=== PATIENT | male | born 1980 | race Caucasian/White ===

== ENCOUNTER 2019-10-03 21:35 | Emergency (ER) | payer MEDICAID, SELFPAY ==
[~2019-10-03] VITALS: Ht 177.8 cm; Wt 68.0 kg
[~2019-10-03 21:35] MED LIST: IBUP1POW8
[2019-10-03 22:29] VITALS: BP 111/71
== END 2019-10-04 02:42 | disposition home or self-care (01) ==
LOC: ER 21:36
DX: R50.9 Fever, unspecified (principal); F17.200 Nicotine dependence, unspecified, uncomplicated; Z20.828 Contact with and (suspected) exposure to other viral communicable diseases
CPT/HCPCS: 87070; 87804; 87880; 99283; U0003

== ENCOUNTER 2019-10-06 15:03 | Emergency (ER) | payer MEDICAID, OTHER, SELFPAY ==
[~2019-10-06] VITALS: Ht 177.8 cm; Wt 68.0 kg
[2019-10-06 15:30] VITALS: BP 132/77
[2019-10-06] MEDS ORDERED: cefTRIAXone SOD 1,000 MG VL IM ONE (16:15)
== END 2019-10-06 16:49 | disposition home or self-care (01) ==
LOC: ER 15:03
DX: J02.9 Acute pharyngitis, unspecified (principal); F17.210 Nicotine dependence, cigarettes, uncomplicated; Z88.1 Allergy status to other antibiotic agents
CPT/HCPCS: 96372; 99283; J0696

== ENCOUNTER 2023-03-18 22:47 | Emergency (ER) | payer SELFPAY ==
[~2023-03-18] VITALS: Ht 177.8 cm; Wt 72.7 kg
[~2023-03-18 22:47] MED LIST changes: +IBUP1POW13; -IBUP1POW8
[2023-03-18 23:01] VITALS: BP 108/75; RESP 15; O2SAT 98
[2023-03-18 23:17] LABS: Basophils # (auto) 0.1 10 ^3/uL (0-0.2); Basophils % (auto) 1.2 % (0.0-2.0); Eosinophils # (auto) 0.2 10 ^3/uL (0-0.8); Eosinophils % (auto) 3.7 % (0.0-7.0); Hematocrit 43.9 % (41.0-53.0); Hemoglobin 14.9 g/dL (13.5-17.5); Lymphocytes # (auto) 1.8 10 ^3/uL (0.4-5.4); Lymphocytes % (auto) 38.3 % (10.0-50.0); Mean Corpuscular Hemoglobin 30.5 pg (28.0-32.0); Mean Corpuscular Volume 89.9 fL (80.0-100.0); Monocytes # (auto) 0.4 10 ^3/uL (0-1.3); Monocytes % (auto) 8.8 % (0.0-12.0); Neutrophils # (auto) 2.2 10 ^3/uL (1.6-8.6); Nucleated Red Blood Cells % 0.1 %; Red Blood Cells 4.88 10^6/uL (4.5-5.90); Red Cell Distribution Width 13.2 % (11.8-14.3); White Blood Cell 4.7 10^3/uL (4.4-10.8)
[2023-03-18 23:24] LABS: INR 0.98 (0.9-1.15); Partial Thromboplastin Time 29.7 SEC (24.5-34.5); Prothrombin Time 10.3 sec (9.3-11.8)
[2023-03-18 23:27] LABS: Alanine Aminotransferase 30 U/L (7-40); Albumin 4.4 g/dL (3.2-4.8); Alkaline Phosphatase 75 U/L (46-116); Anion Gap 7 (5-15); Aspartate Aminotransferase 24 U/L (13-40); Blood Urea Nitrogen 12 mg/dL (9-23); Carbon Dioxide 28 mmol/L (20-30); Chloride 107 mmol/L (98-107); Glucose 53 mg/dL (74-106); Magnesium 1.8 mg/dL (1.6-2.6); Potassium 3.6 mmol/L (3.5-5.1); Sodium 142 mmol/L (136-145)
[2023-03-18 23:28] LABS: Bilirubin, Total 0.4 mg/dL (0.2-1.0); Total Protein 6.5 g/dL (5.7-8.2)
[2023-03-19 00:03] LABS: Calcium 8.7 mg/dL (8.7-10.4)
[2023-03-19] MEDS ORDERED: IBUPROFEN 400 MG TAB PO ONE (01:00)
[2023-03-19 02:17] VITALS: PULSE 77
== END 2023-03-19 05:18 | disposition left against medical advice (07) ==
LOC: ER 22:47
DX: R07.89 Other chest pain (principal); M54.9 Dorsalgia, unspecified; F17.210 Nicotine dependence, cigarettes, uncomplicated; Z88.1 Allergy status to other antibiotic agents
CPT/HCPCS: 36415; 71045; 80053; 83735; 83880; 84484; 85025; 85610; 85730; 93005